=== PATIENT | female | born 1960 | race Caucasian/White ===

== ENCOUNTER 2019-12-20 07:34 | Day surgery (SDC) | payer MEDICAID, SELFPAY ==
[~2019-12-20] VITALS: Ht 157.5 cm; Wt 59.0 kg
[2019-12-20] MEDS ORDERED: SIMETHICONE 40 MG/0.6 ML ML ONE (08:09)
[2019-12-20] MEDS ORDERED: BENZOCAINE 20% 0.5mL UD SPRAY MM ONE (08:09)
[2019-12-20] MEDS ORDERED: MIDAZOLAM HCL 5 MG/5 ML VIAL ONE (08:11)
[2019-12-20] MEDS ORDERED: fentaNYL CITRATE/PF 100 MCG/2 ML AMP ONE (08:11)
[2019-12-20 09:55] VITALS: BP_SYST 118
== END 2019-12-20 10:18 | disposition still patient (30) ==
LOC: SDS 07:34 → SMU 07:35 → SDS 10:18
PROVIDERS: ATTEND Internal Medicine
DX: D50.9 Iron deficiency anemia, unspecified (principal); D12.2 Benign neoplasm of ascending colon; D12.5 Benign neoplasm of sigmoid colon; K29.50 Unspecified chronic gastritis without bleeding; K57.30 Diverticulosis of large intestine without perforation or abscess without bleeding; K92.1 Melena; K64.8 Other hemorrhoids; Z20.828 Contact with and (suspected) exposure to other viral communicable diseases; E78.00 Pure hypercholesterolemia, unspecified; Z79.899 Other long term (current) drug therapy
CPT/HCPCS: 43239; 45380; 45385; 88305; 88312; 88313; 99152; 99153; C1769; G0378; J2250; J3010; U0003; J7030